=== PATIENT | male | born 1985 | race Caucasian/White ===

== ENCOUNTER 2020-11-07 15:48 | Emergency (ER) | payer SELFPAY ==
[~2020-11-07] VITALS: Ht 175.3 cm; Wt 90.7 kg
[2020-11-07] MEDS ORDERED: TDAP DIPH,PERTUSS,TET VAC/PF 0.5 ML DISP.SYRIN IM ONE ×2 (16:15→17:59)
[2020-11-07] MEDS ORDERED: LIDOCAINE 2%-EPI 1:100,000 20 ML VIAL TP ONE (16:15)
[2020-11-07] MEDS ORDERED: IBUP-1955 PO (17:45)
[2020-11-07 18:09] VITALS: BP 129/81
--- NOTE | 2020-11-07 18:09 | NUR ---
PT WAS EVALUATED BY DR HERNANDEZ. PT WAS D/C'd TO HOME. D/C INSTRUCTIONS GIVEN TO THE PT BY DR HERNANDEZ.
== END 2020-11-07 18:10 | disposition home or self-care (01) ==
LOC: ER 15:50
DX: S81.811A Laceration without foreign body, right lower leg, initial encounter (principal); W26.8XXA Contact with other sharp object(s), not elsewhere classified, initial encounter; Y92.89 Other specified places as the place of occurrence of the external cause
CPT/HCPCS: 12002; 90471; 90715; 99283; J3490; A4663